=== PATIENT | female | born 1955 | race Asian ===

== ENCOUNTER 2019-11-08 19:10 | Emergency (ER) | payer OTHER ==
[~2019-11-08] VITALS: Ht 152.4 cm; Wt 54.0 kg
[2019-11-08] MEDS ORDERED: SODIUM CHLORIDE 0.9% 500 ML IV ONE (20:45)
[2019-11-08 21:31] LABS: Urine Bacteria NONE SEEN /hpf (None Seen); Urine Blood Negative /uL (Negative); Urine Hyaline Cast MANY /lpf (0 - 2); Urine Mucus MODERATE (None Seen); Urine Specific Gravity 1.018 (1.001-1.035); Urine WBC 32 /hpf (0 - 5)
[2019-11-08 22:03] LABS: Basophils # (auto) 0 uL; Basophils % (auto) 0.3 % (0.0-2.0); Eosinophils # (auto) 0 uL; Eosinophils % (auto) 0.1 % (0.0-7.0); Hematocrit 38.9 % (36.0-46.0); Lymphocytes # (auto) 0.9 uL; Lymphocytes % (auto) 11.3 % (10.0-50.0); Mean Corpuscular Hemoglobin 30.3 pg (28.0-32.0); Mean Corpuscular Hgb Conc. 33.5 g/dL (32.0-36.0); Mean Corpuscular Volume 90.3 fL (80.0-100.0); Monocytes # (auto) 0.5 uL; Monocytes % (auto) 6.9 % (0.0-12.0); Neutrophils # (auto) 6.2 uL; Neutrophils % (auto) 81.4 % (37.0-80.0); Nucleated Red Blood Cells % 0.1 %; Platelet Count (auto) 334 10^3/uL (140-450); Red Cell Distribution Width 12.5 % (11.8-14.3); White Blood Cell 7.6 10^3/uL (4.4-10.8)
[2019-11-08 22:17] LABS: Albumin 3.1 g/dL (3.4-5.0); Anion Gap 6 (5-15); Calcium 8.1 mg/dL (8.5-10.1); Carbon Dioxide 24 mmol/L (21-32); Chloride 103 mmol/L (98-107); Glucose 198 mg/dL (74-106); Magnesium 1.8 mg/dL (1.6-2.6); Sodium 133 mmol/L (136-145)
[2019-11-08 22:18] LABS: INR 1.07 (0.9-1.15); Partial Thromboplastin Time 29.2 sec (23.64-32.05)
[2019-11-08 22:24] LABS: Alanine Aminotransferase 21 U/L (13-56); Alkaline Phosphatase 65 U/L (45-117); Aspartate Aminotransferase 19 U/L (15-37); BUN/Creatinine Ratio 17.3; Bilirubin, Total 0.3 mg/dL (0.2-1.0); Blood Urea Nitrogen 17 mg/dL (7-18); GFR African American 73 mL/min; GFR Non-African American 61 mL/min; Total Protein 8.1 g/dL (6.4-8.2)
[2019-11-09 00:02] VITALS: BP 136/65
== END 2019-11-09 00:07 ==
LOC: EEVIPCON 19:20 → ER 19:20
DX: N39.0 Urinary tract infection, site not specified (principal); R42 Dizziness and giddiness; R51 Headache; E11.9 Type 2 diabetes mellitus without complications; E78.5 Hyperlipidemia, unspecified
CPT/HCPCS: 36415; 70450; 71046; 80053; 81001; 82962; 83735; 83880; 84484; 85025; 85610; 85730; 99285; J7040